=== PATIENT | female | born 1960 | race Caucasian/White ===

== ENCOUNTER → 2023-04-01 11:40 | Outpatient (REF) | payer BC, SELFPAY ==
[2023-04-02 11:30] LABS: Body Fluid Mononuclear 19.7 %; Body Fluid Polymorphonuclear 80.3 %; Body Fluid WBC 21815 /CUMM
[2023-04-02 11:32] LABS: Body Fluid Second Tech CF
[2023-04-04 16:40] LABS: Lyme Disease DNA by PCR Not Detected; Lyme Source Synovial fluid
== END ==
LOC: CLAB 11:40
PROVIDERS: ATTENDING PHYSICIAN Physician Assistant
DX: M17.12 Unilateral primary osteoarthritis, left knee (principal)
CPT/HCPCS: 36415; 87015; 87070; 87205; 87476; 89051; 89060

== ENCOUNTER → 2023-05-05 10:44 | Outpatient (REF) | payer BC, SELFPAY ==
[2023-05-05 11:34] LABS: % Basophils 0.5 % (0-2); % Eosinophils 1.5 % (0-6); % Immature Granulocytes 0.3 % (0-0.5); % Lymphocytes 23.6 % (20.5-51.1); % Monocytes 9.1 % (1.7-9.3); Absolute Basophils 0.1 10^3/uL (0-0.2); Absolute Eosinophils 0.2 10^3/uL (0-0.7); Absolute Lymphocytes 2.4 10^3/uL (1.2-3.4); Absolute Monocytes 0.9 10^3/uL (0.1-0.6); Absolute Neutrophils 6.5 10^3/uL (1.4-6.5); Hemoglobin 14.5 g/dL (12.0-16.0); Mean Corp Hgb Conc. 34.5 g/dL (33.0-37.0); Mean Corpuscular Hgb 32.4 pg (27.0-31.0); Nucleated Red Blood Cells % 0 %; Platelet Count 349 10^3/uL (130-400); Red Blood Cell Count 4.47 10^6/uL (4.20-5.40); Red Cell Dist. Width 12.4 % (11.5-14.5)
[2023-05-05 11:58] LABS: ALT (SGPT) 20 U/L (0-35); AST (SGOT) 22 U/L (14-36); Albumin 4.1 g/dl (3.5-5.0); Alkaline Phosphatase 77 U/L (38-126); Blood Urea Nitrogen 15 mg/dl (7-17); Calcium 9.8 mg/dl (8.4-10.2); Carbon Dioxide 29 mmol/L (22-30); Chloride 104 mmol/L (98-107); Glucose 124 mg/dl (70-99); HDL Cholesterol 94 mg/dl; LDL Cholesterol, Calculated 145 mg/dl; Potassium 4.6 mmol/L (3.5-5.1); Sodium 140 mmol/L (135-145); Total Bilirubin 0.8 mg/dl (0.2-1.3); Total Cholesterol 259 mg/dl (50-199); Total Protein 6.7 g/dl (6.3-8.2); Triglyceride 103 mg/dl (10-149); Very Low Density Lipoprotein 20 mg/dl (0-30); eGFR > 60.00
[2023-05-05 12:24] LABS: TSH Reflex To Free T4 1.36 uIU/ml (0.47-4.68)
== END ==
LOC: REG 10:44
PROVIDERS: ATTENDING PHYSICIAN Family Medicine
DX: E78.2 Mixed hyperlipidemia (principal); I10 Essential (primary) hypertension; Z13.0 Encounter for screening for diseases of the blood and blood-forming organs and certain disorders involving the immune mechanism; Z13.89 Encounter for screening for other disorder
CPT/HCPCS: 36415; 80053; 80061; 84443; 85025

== ENCOUNTER → 2024-06-21 09:08 | Outpatient (REF) | payer BC, SELFPAY ==
[2024-06-21 09:43] LABS: % Basophils 0.5 % (0-2); % Eosinophils 1.5 % (0-6); % Immature Granulocytes 0.2 % (0-0.5); % Lymphocytes 26.7 % (20.5-51.1); % Neutrophils 61.1 % (42.2-75.2); Absolute Eosinophils 0.1 10^3/uL (0-0.7); Absolute Lymphocytes 1.6 10^3/uL (1.2-3.4); Absolute Monocytes 0.6 10^3/uL (0.1-0.6); Absolute Neutrophils 3.7 10^3/uL (1.4-6.5); Hematocrit 42.9 % (37.0-47.0); Hemoglobin 14.5 g/dL (12.0-16.0); Mean Corp Hgb Conc. 33.8 g/dL (33.0-37.0); Mean Corpuscular Hgb 32.6 pg (27.0-31.0); Mean Corpuscular Volume 96.4 fL (81.0-99.0); Mean Platelet Volume 8.9 fL (7.4-10.4); Nucleated Red Blood Cells % 0 %; Platelet Count 284 10^3/uL (130-400); Red Blood Cell Count 4.45 10^6/uL (4.20-5.40); Red Cell Dist. Width 12.3 % (11.5-14.5); White Blood Cell Count 6.1 10^3/uL (4.8-10.8)
[2024-06-21 10:21] LABS: ALT (SGPT) 18 U/L (0-35); AST (SGOT) 19 U/L (14-36); Alkaline Phosphatase 52 U/L (38-126); Blood Urea Nitrogen 12 mg/dl (7-17); Calcium 9.9 mg/dl (8.4-10.2); Carbon Dioxide 30 mmol/L (22-30); Chloride 105 mmol/L (98-107); Glucose 142 mg/dl (70-99); HDL Cholesterol 96 mg/dl; LDL Cholesterol, Calculated 156 mg/dl; Potassium 4.9 mmol/L (3.5-5.1); Sodium 140 mmol/L (135-145); Total Bilirubin 0.7 mg/dl (0.2-1.3); Total Cholesterol 277 mg/dl (50-199); Total Protein 6.3 g/dl (6.3-8.2); Triglyceride 126 mg/dl (10-149); Very Low Density Lipoprotein 25 mg/dl (0-30); eGFR > 60.00
[2024-06-21 10:34] LABS: TSH Reflex To Free T4 1.01 uIU/ml (0.47-4.68)
[2024-06-21 12:18] LABS: Glycohemoglobin (HgbA1c) 5.9 % (4.0-5.6)
[2024-06-22 23:06] LABS: Vitamin D, 25-OH*** 23.7 ng/mL (30-80)
[2024-06-22 23:20] LABS: Cortisol, Random 17.1 ug/dl
== END ==
LOC: REG 09:08
PROVIDERS: ATTENDING PHYSICIAN Family Medicine
DX: E78.2 Mixed hyperlipidemia (principal); F32.4 Major depressive disorder, single episode, in partial remission; I10 Essential (primary) hypertension; Z79.899 Other long term (current) drug therapy; R73.01 Impaired fasting glucose
CPT/HCPCS: 36415; 80053; 80061; 82306; 82533; 83036; 83735; 84443; 85025

== ENCOUNTER 2024-12-19 11:08 | Emergency (ER) | payer BC, SELFPAY ==
[2024-12-19 11:17] VITALS: BP 95/65
[2024-12-19 12:36] VITALS: BMI 27.5
[2024-12-19 12:41] VITALS: BP 94/76
[2024-12-19 13:00] VITALS: BP 93/71
[2024-12-19 13:06] LABS: Hematocrit 44.8 % (37.0-47.0); Hemoglobin 16.3 g/dL (12.0-16.0); Mean Corp Hgb Conc. 36.4 g/dL (33.0-37.0); Mean Corpuscular Volume 91.1 fL (81.0-99.0); Nucleated Red Blood Cells % 0 %; Platelet Count 357 10^3/uL (130-400); Red Cell Dist. Width 12.0 % (11.5-14.5)
[2024-12-19 13:24] LABS: ALT (SGPT) 35 U/L (0-35); AST (SGOT) 30 U/L (14-36); Albumin 4.4 g/dl (3.5-5.0); Alkaline Phosphatase 56 U/L (38-126); Blood Urea Nitrogen 39 mg/dl (7-17); Calcium 10.1 mg/dl (8.4-10.2); Carbon Dioxide 24 mmol/L (22-30); Chloride 100 mmol/L (98-107); Estimated Creatinine Clearance 46 ml/min; Glucose 156 mg/dl (70-99); Potassium 4.0 mmol/L (3.5-5.1); Sodium 129 mmol/L (135-145); Total Protein 7.1 g/dl (6.3-8.2); eGFR 55.76
[2024-12-19] MEDS: NSS 1000 IV ×2 (13:43→14:19)
[2024-12-19 14:02] VITALS: BP 97/70
--- NOTE | 2024-12-19 14:18 | ED.GENMED ---
History of Present Illness
General
Chief Complaint: Abdominal Symptoms
Source: patient
Time Seen by Provider: 12/19/24 13:39
History of Present Illness
History of Present Illness:
64-year-old female presenting to the emergency department for evaluation of nausea and vomiting over the last 5 days, having a difficult time tolerating p.o. Patient went to [facility] and her obtain some IV fluids but was sent to the
ER for further evaluation. Earlier in the week she noted pain within the lower part of her abdomen which is since resolved. She denies any bowel related concerns. No fevers, chills, rigors, urinary symptoms. No new medications. At present time
patient reports she is asymptomatic and that after receiving some of the IV fluids here feeling much better.
Past History
Past History
ED Past Medical History: Psychiatric and Other (knee arthritis)
ED Past Surgical History: None
Social History
Tobacco: Smoker
Alcohol: Occasional
Drug: None
Personal:
Living: with family
Review of Systems
Review of Systems
All Other Systems: ROS reviewed and negative except as documented in HPI and ROS
Phy Exam
Physical Exam
Physical Exam:
GENERAL: Alert , in no apparent distress
VITAL SIGNS: mild hypotension noted
EYE: clear conjunctiva b/l
HEAD: NCAT
ENT: o/p clr, mmm.
CARDIAC: Regular rate and rhythm .
LUNGS: Clear breath sounds bilaterally, no acute respiratory distress, no wheezes/rales/rhonchi
ABDOMEN: Soft, without focal tenderness, no r/g, no cvat
NEUROLOGICAL: Alert and oriented
SKIN: Warm and dry, skin intact.
MUSCULOSKELETAL: well perfused.
PSYCH: Normal and appropriate interaction.
Scores
Heart Failure Risk
Heart Failure Risk Score: Not Applicable
Heart Score for Chest Pain Patients
STEMI patient?: Not applicable
Withdrawal Assessment of Alcohol
Withdrawal Assessment Completed?: Not applicable
Course
Orders/Labs/Results
Orders:
Orders
12/19/24 12:52
CMP [Comprehensive Metabolic Panel] Urgent
Complete Blood Count/With Diff Urgent
12/19/24 13:40
0.9% Sodium Chloride 1000 ml [Nss] 1,000 ml IV BOLUS
12/19/24 13:53
CT Abd/pelvis W Iv Cont Urgent
Comment:
Reason For Exam: lower abd pain
0.9% Sodium Chloride 1000 ml [Nss] 1,000 ml IV BOLUS
Abnormal Lab Results
12/19/24
12:52
Hgb 16.3 H g/dL
(12.0-16.0)
MCH 33.1 H pg
(27.0-31.0)
Absolute Monos (auto) 1.0 H 10^3/uL
(0.1-0.6)
Monocytes % 11.2 H %
(1.7-9.3)
Sodium 129 L mmol/L
(135-145)
BUN 39 H mg/dl
(7-17)
Creatinine 1.1 H mg/dL
(0.6-1.0)
Glucose 156 H mg/dl
(70-99)
12/19/24 12:52
12/19/24 12:52
Vital Signs
Initial and Last Documented VS:
Initial Vital Signs
Temp Pulse Resp BP Pulse Ox
97.7 F 104 16 95/65 99
12/19/24 11:17 12/19/24 11:17 12/19/24 11:17 12/19/24 11:17 12/19/24 11:17
Last Documented Vital Signs
Temp Pulse Resp BP Pulse Ox
98.1 F 80 22 95/70 100
12/19/24 12:40 12/19/24 14:15 12/19/24 17:00 12/19/24 17:00 12/19/24 16:45
MDM/Problems Addressed
Differential Diagnosis Includes:
Gastroenteritis
Bowel obstruction
Diverticulitis
Pancreatitis
Dehydration
Electrolyte imbalance
GERD/Gastritis
MDM/Problems Addressed:
64-year-old female presenting to the ER for evaluation of nausea and vomiting over the last 5 days, having a harder time tolerating p.o. at home. On arrival here mild hypotension noted and starting to improve following IV fluids. Labs have been
initiated in triage showing a mild ROBYN, BUN elevated which correlates with suspicion for mild dehydration. Given the pain reported earlier in the week will obtain CT scan to ensure no acute surgical process. Disposition pending.
*Pulse Oximetry
SaO2: 97
Oxygen Mode of Delivery: Room air
Patient hypoxic: no
*Critical Care Note
Total Time (30-74mins, 75-104mins- exclusive of procedures): Not Applicable
Patient Management
Escalation/DeEscalation of care consider admission/obs:
Patient CT scan shows mild diverticulosis but no diverticulitis. Given her symptoms I did consider diverticulitis as a possible diagnosis but given lack of fever, normal white blood cell count and currently no pain I decided against starting the
patient on antibiotics. She completed her IV fluids without any difficulty and notes she continues to feel significantly better. At this time I do think it is reasonable for patient to be discharged home, continue bland diet. Aware of return
precautions to the ER.
ED Attending Note
-
Portions of this chart may have been created with voice recognition software.� Occasional wrong word or��sound alike� substitutions may have occurred due to the inherent limitations of voice recognition software.
Discharge Plan
Departure
Patient Disposition: Home (Routine Discharge)
Date of Disposition: 12/19/24
Time of Disposition: 15:52
Patient with high blood pressure during this ER visit?: No
Discharge Problem:
Nausea & vomiting, Dehydration
Instructions: Nausea and Vomiting, Adult (DC)
Referrals:
Dorothy Araujo MD [Family Provider, Family Practice]
Stand Alone Forms: Return to Work
Interventions
Interventions:
*Risk Screen - Suicide Last Done: 12/19/24 12:36
*General Assessment Last Done: 12/19/24 12:36
*Neglect/Abuse Screening Last Done: 12/19/24 12:36
*ED- Fall Risk Assessment Last Done: 12/19/24 12:36
*ED COVID-19 Vaccine History Last Done: 12/19/24 12:36
*ED Influenza Vaccine History Last Done: 12/19/24 12:36
*Nursing Disposition Last Done: 12/19/24 17:07
XY-Ynduwx-Bbqushiyfp Assessment Last Done: 12/19/24 12:36
Discharge Date and Time
Discharge Date/Time: 12/19/24 17:08
Print Language: TAIWANESE
[2024-12-19 17:00] VITALS: BP 95/70
== END 2024-12-19 17:08 | disposition home or self-care (01) ==
LOC: EMR 11:08
PROVIDERS: Physician Assistant Medical; EMERGENCY PHYSICIAN Emergency Medicine; FAMILY PHYSICIAN Family Medicine
DX: R11.2 Nausea with vomiting, unspecified (principal); E86.0 Dehydration; M17.10 Unilateral primary osteoarthritis, unspecified knee; F17.200 Nicotine dependence, unspecified, uncomplicated; Z88.2 Allergy status to sulfonamides; Z88.8 Allergy status to other drugs, medicaments and biological substances
CPT/HCPCS: 99284; 96361; 96360; 74177; 80053; 85025; Q9967

== ENCOUNTER 2025-01-31 09:46 | Emergency (ER) | payer BC, SELFPAY ==
[2025-01-31 09:55] VITALS: BP 116/95
--- NOTE | 2025-01-31 11:51 | ED.GENMED ---
History of Present Illness
General
Chief Complaint: Musculo-Skeletal Complaint
Source: patient
Time Seen by Provider: 01/31/25 12:02
History of Present Illness
History of Present Illness:
64 yr old female presents to the ED with c/o knee swelling and requesting a tap. She states she needs a knee replacement but hasn't been able to schedule yet. This swelling happens approx once a year, no associated f/c/n/v/redness/warmth/drainage
or other cpmlnts.
Past History
Past History
ED Past Medical History: HTN, Psychiatric and Other (knee arthritis)
ED Past Surgical History: Other (oral)
Social History
Tobacco: Smoker
Alcohol: Occasional
Drug: None
Personal:
Living: with family
Employment: Employed
Phy Exam
Physical Exam
Physical Exam:
AAO times three, pleasant
PERRL, mmm, o/p clear
neck supple
hrt rrr
lung cta
skin warm well perfused
neuro grossly itnact
psych appropriate
extrem L knee with effusion noted, sl limited ROM due to effusion, no ttp, no redness/warmth/crepitus/break in skin or other abnl
Course
Orders/Labs/Results
Orders:
Orders
01/31/25 10:00
Knee, Left 4 or More Views [CR Knee - Left 4 Or More View*] Urgent
Comment:
Reason For Exam: swelling
01/31/25 12:25
Lyme Progressive Urgent
01/31/25 12:26
Body Fluid Cell Count Urgent
What is the Body Fluid: joint
Date Specimen was Collected: 01/31/25
Time Specimen was Collected: 12:27
Comment: with DIFF
Body Fluid Crystals Urgent
What is the Body Fluid: joint
Date Specimen was Collected: 01/31/25
Time Specimen was Collected: 12:27
Body Fluid Glucose Urgent
Fluid Source: Other
Date Specimen was Collected: 01/31/25
Time Specimen was Collected: 12:28
01/31/25 12:30
Wound/Abscess/Other Culture Urgent
ARTUR Source: JT
Specimen Description:
Date Specimen was Collected: 01/31/25
Time Specimen was Collected: 12:28
Vital Signs
Initial and Last Documented VS:
Initial Vital Signs
Temp Pulse Resp BP Pulse Ox
98.2 F 88 20 116/95 98
01/31/25 09:55 01/31/25 09:55 01/31/25 09:55 01/31/25 09:55 01/31/25 09:55
Last Documented Vital Signs
Temp Pulse Resp BP Pulse Ox
98.2 F 88 20 116/95 98
01/31/25 09:55 01/31/25 09:55 01/31/25 09:55 01/31/25 09:55 01/31/25 11:54
Procedures
Incision/Drainage/Joint Aspiration
Left Knee:
Anethesia: 1% Lidocaine with Epi
Preparation: cleaned with Betadine
Type of procedure: aspiration
Nature of site: other
How much fluid was obtained?: large amount (approx 40 cc)
Fluid description: blood tinged
Treatment: bandaid applied
MDM/Problems Addressed
Differential Diagnosis Includes:
but not limited to gout, septic arthritis, inflammatory arthritis, knee effusion etc
Chronic conditions affecting care:
chronic arthritis
*Radiology
Radiology exam reviewed: preliminary read by ED provider (degne changed, effusion noted)
*Pulse Oximetry
SaO2: 98
Oxygen Mode of Delivery: Room air
Patient hypoxic: no
*EKG
Interpreted by ED Provider?: NA
*Supervisor Slitting And Shipping Interpretation
Rate: Supervisor Slitting And Shipping- N/A
*Critical Care Note
Total Time (30-74mins, 75-104mins- exclusive of procedures): Not Applicable
Update Note
Update Note:
Pt requesting arthrocentesis for therapeautic purposes, can't see ortho until 02/14. Does not have diabetes, overlying skin infx, take blood thinners, etc as identifiable contraindications. Did d/w pt risks of performing, incluidng infx, bleeding,
etc...she consents/agrees to procedure with these risks in mind, consent signed and given to to scan.
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 I will alert her if results suggestive of infx or other worrisome illness.
In procedure, was able to express approx 40 ml of blood tinged fluid, no purulence, sent for analysis. STrongly encouraged to see ortho in close f/u, knee immobilizer placed.
ED Attending Note
-
Portions of this chart may have been created with voice recognition software.� Occasional wrong word or��sound alike� substitutions may have occurred due to the inherent limitations of voice recognition software.
Discharge Plan
Departure
Patient Disposition: Home (Routine Discharge)
Date of Disposition: 01/31/25
Time of Disposition: 12:27
Patient with high blood pressure during this ER visit?: Yes
Condition: Good
Discharge Problem:
Effusion of knee
Instructions: Knee Immobilizer (DC), Knee pain
Referrals:
carol [Other]
Munir Davenport MD [Active, Orthopedics] - Next open appointment
Dorothy Araujo MD [Family Provider, Family Practice]
Activity Restrictions/Additional Instructions:
PLEASE KEEP YOUR LEG ELEVATED, TAKE ANTI INFLAMMATORY MEDICATION DIRECTED, AND SEE YOUR ORTHOPEDIC DOCTOR IN CLOSE FOLLOW UP. IF YOU DEVELOP FEVER, REDNESS/WARMTH/DRAINAGE/INCREASING OR NEW PAIN, GET WORSE, OR OTHER WORRISOME SIGNS, GO TO THE ER
IMMEDIATELY!
Interventions
Interventions:
*Risk Screen - Suicide Last Done: 01/31/25 09:55
[facility] Risk Assessment Tool Last Done: 01/31/25 11:27
*Nursing Disposition Last Done: 01/31/25 12:40
ED-Musculoskeletal Assessment Last Done: 01/31/25 11:55
Discharge Date and Time
Discharge Date/Time: 01/31/25 12:40
Print Language: BELARUSIAN
[2025-01-31 14:36] LABS: Body Fluid Granulocytes 71 %
[2025-01-31 14:41] LABS: Body Fluid Second Tech EF
== END 2025-01-31 12:40 | disposition home or self-care (01) ==
LOC: EMR 09:46
PROVIDERS: EMERGENCY PHYSICIAN Emergency Medicine; FAMILY PHYSICIAN Family Medicine
DX: M25.462 Effusion, left knee (principal); I10 Essential (primary) hypertension; F17.200 Nicotine dependence, unspecified, uncomplicated
CPT/HCPCS: 99283; 29505; 73564; 82945; 87070; 87205; 87476; 89051; 89060